=== PATIENT | female | born 1970 | race Caucasian/White ===

== ENCOUNTER → 2016-10-26 | Outpatient (CLI) | payer BC | LOC: MAMO 10-17 10:30 | DX: Z12.31 Encounter for screening mammogram for malignant neoplasm of breast (principal) | CPT/HCPCS: G0202 ==

== ENCOUNTER → 2021-04-06 | Outpatient (CLI) | payer BC | LOC: MAMO 02-28 10:00 | DX: Z12.31 Encounter for screening mammogram for malignant neoplasm of breast (principal) | CPT/HCPCS: 77063; 77067 ==

== ENCOUNTER → 2022-02-23 | Outpatient (CLI) | payer BC | LOC: EXRD 08:00 | DX: K82.4 Cholesterolosis of gallbladder (principal) | CPT/HCPCS: 76705 ==